=== PATIENT | female | born 1995 ===

== ENCOUNTER 2018-10-06 22:48 | Emergency (ER) | payer SELFPAY ==
[2018-10-06 23:49] VITALS: BP 111/69
--- NOTE | 2018-10-07 02:42 | Emergency Department Report ---
[facility] Chief Complaint: Eye Problems Stated Complaint: REDNESS IN LT EYE Time Seen by Provider: 10/07/18 02:36 Side: Left Severity: moderate Symptoms: Yes Eye Itching, Yes Eye Redness, Yes Mucous Drainage, Yes Purulent D rainage, Yes H/O Allergic Rhinitis, No Eye Pain, No Blurred Vision, No Preceding URI, No Contact Lens Use, No Trauma, No Fever, No Headache Other History: pt is a 23 y/o female who presents for "Pinkeye" x 3 days symptoms including burning itching readness purulent drainage especially in am, there is no decreased vision no fever no chills no blurred vision, no swelling. ED Review of Systems ROS: Stated complaint: REDNESS IN LT EYE Other details as noted in HPI Constitutional: denies: chills, fever Eyes: eye pain (burning itching ), eye discharge ENT: denies: ear pain, throat pain Respiratory: denies: cough, shortness of breath, wheezing Cardiovascular: denies: chest pain, palpitations Endocrine: no symptoms reported Gastrointestinal: denies: abdominal pain, nausea, vomiting, diarrhea Genitourinary: denies: urgency, dysuria, discharge Musculoskeletal: denies: back pain, joint swelling, arthralgia Skin: denies: rash, lesions Neurological: as per HPI Psychiatric: denies: anxiety, depression Hematological/Lymphatic: as per HPI ED Past Medical Hx - Past Medical History Previous Medical History?: No - Surgical History Past Surgical History?: No - Social History Smoking Status: Current Every Day Smoker Substance Use Type: None - Medications Home Medications: Home Medications Medication Instructions Recorded Confirmed Last Taken Type Ibuprofen [Motrin 800 MG tab] 800 mg PO Q8HR PRN #30 tablet 10/07/18 Unknown Rx Ketotifen Fumarate [Zaditor] 2 drops OP BID #5 ml 10/07/18 Unknown Rx Polymyxin B Sulf/Trimethoprim 2 drops OP Q4H 10 Days #10 ml 10/07/18 Unknown Rx [Polytrim Eye Drops] [facility] Exam - Exam General: Vital signs noted. No distress. Alert and acting appropriately. Eye Exam: Left Injection, Left Mucous Discharge, Left Purulent Discharge, Left Photophobia, Both EOMI, Neither Chemosis, Neither Abnormal Pupil, Neither Eye Foreign Body, Neither Lid Foreign Body, Neither Corneal Edema HEENT: No Nasal Congestion, No Pharyngeal Erythema Remainder of HEENT: Normal Lungs: Yes Clear Lung Sounds, Yes Good Air Exchange, No Wheezes, No Stridor, No Cough, No Nasal Flaring, No Retractions, No Use of Accessory Muscles ED Course Vital Signs 10/06/18 23:47 Temperature 98.5 F Pulse Rate 72 Respiratory 18 Rate Blood Pressure 111/69 O2 Sat by Pulse 100 Oximetry Critical care attestation.: If time is entered above; I have spent that time in minutes in the direct care of this critically ill patient, excluding procedure time. ED Disposition Clinical Impression: Conjunctivitis Qualifiers: Conjunctivitis type: acute Acute conjunctivitis type: bacterial Laterality: left Qualified Code(s): H10.32 - Unspecified acute conjunctivitis, left eye Disposition: - TO HOME OR SELFCARE Is pt being admited?: No Does the pt Need Aspirin: No Condition: Stable Instructions: Antibiotic Combinations (Into the eye), Conjunctivitis (ED) Prescriptions: Ibuprofen [Motrin 800 MG tab] 800 mg PO Q8HR PRN #30 tablet PRN Reason: pain Polymyxin B Sulf/Trimethoprim [Polytrim Eye Drops] 2 drops OP Q4H 10 Days #10 ml Ketotifen Fumarate [Zaditor] 2 drops OP BID #5 ml Referrals: DARYN VICTORIA MD [Staff Physician] - 3-5 Days [facility] PAYAM MUJICA MD [Primary Care Provider] - [place] Forms: Work/School Release Form(ED) Time of Disposition: 02:48 Print Language: MONTENEGRIN
== END 2018-10-07 03:00 | disposition home or self-care (01) ==
LOC: ED 22:48
DX: H10.9 Unspecified conjunctivitis (principal); F17.200 Nicotine dependence, unspecified, uncomplicated; Z79.899 Other long term (current) drug therapy
CPT/HCPCS: 99282